=== PATIENT | male | born 1980 | race African-American/Black ===

== ENCOUNTER 2018-12-10 10:56 | Emergency (ER) | payer BC ==
[~2018-12-10] VITALS: Wt 78.7 kg
[2018-12-10] MEDS ORDERED: LIDOCAINE 1% (MDV) 10 ML INJ INJ STA (12:55)
--- NOTE | 2018-12-10 13:04 | ERD ---
ER Documentation Chief Complaint Chief Complaint left below eye lac after accidental elbow while playing basketball HPI 38-year-old male presents complaint of laceration to his upper left cheek which occurred today approximately 1 hour ago while playing basketball. Patient denies any pain. Patient denies any vision problems. Patient is up-to-date his vaccines. ROS All systems reviewed and are negative except as per history of present illness. Allergies Allergies: Coded Allergies: No Known Allergy (Unverified , 12/10/18) PMhx/Soc Medical and Surgical Hx: pt denies Medical Hx History of Surgery: Yes (torn acl 1999) Hx Alcohol Use: Yes Hx Substance Use: No Hx Tobacco Use: No Smoking Status: Never smoker Physical Exam Vitals Vital Signs Date Temp Pulse Resp B/P (MAP) Pulse Ox O2 O2 Flow FiO2 Time Delivery Rate 12/10/18 98.9 102 20 146/73 97 11:08 (97) Physical Exam Const: No acute distress Head: Atraumatic Eyes: Normal Conjunctiva. EOMs intact. ENT: Normal External Ears, Nose and Mouth. Neck: Full range of motion. No meningismus. Resp: Clear to auscultation bilaterally Cardio: Regular rate and rhythm, no murmurs Abd: Soft, non tender, non distended. Normal bowel sounds Skin: Approximately 1 cm laceration noted to the maxillary area of left cheek. No bony deformity noted. No foreign bodies noted. There is no bleeding. Back: No midline or flank tenderness Ext: No cyanosis, or edema Neur: Awake and alert Psych: Normal Mood and Affect Results 24 hrs Current Medications Medications Dose Sig/Óscar Start Time Status Last (Trade) Ordered Route PRN Stop Time Admin Dose Reason Admin Lidocaine 10 ml ONCE STAT 12/10/18 DC HCl INJ 12:55 (Lidocaine 12/10/18 12:56 1% (Mdv) 10 ml) Procedures/MDM MDM: Laceration Repair by me: Anesthesia: 1% lidocaine locally Location: Left maxillary Tendon/Joint/Nerves: No injury Foreign body: None detected after copious irrigation and exploration Technique: Skin glue Complexity: No subcutaneous sutures/mucosal repair/edge excision Post Closure Length: 1 cm Patient's bleeding was easily controlled in the department and there is no indication of anemia. No evidence of compartment syndrome, neurologic injury, vascular injury, open joint, tendon laceration, or foreign body. Patient is appropriate for outpatient follow up. 48 hour wound check. Scar minimization instructions given. Patient's EOMs are intact and there is no evidence of any kind of EOM entrapment or fracture therefore I do not feel that facial CT is necessary. Patient said he preferred Dermabond and this is appropriate given the presentation and location of the wound. At this time, patient is stable for discharge and outpatient management. I have instructed the patient to follow-up with his/her primary care physician in 1-2 days as well as return to ER 40 hours for wound check. I have discussed with the patient the possibility of needing to see a specialist for further workup and imaging studies if symptoms persist. I have instructed the patient to promptly return to the ER for any new or worsening symptoms including but not limited to increased pain, fever, nausea, vomiting, weakness or LOC. The patient and/or family expressed understanding of and agreement with this plan. All questions were answered. Home care instructions were provided. DISCLAIMER: Inadvertent spelling and grammatical errors are likely due to EHR/dictation software use and do not reflect on the overall quality of patient care. Also, please note that the electronic time recorded on this note does not necessarily reflect the actual time of the patient encounter. Departure Diagnosis: Primary Impression: Laceration Condition: Stable GILA KELLY Dec 10, 2018 13:04
[2018-12-10 14:09] VITALS: BP 132/71; PULSE 87; RESP 20
== END 2018-12-10 14:10 | disposition home or self-care (01) ==
LOC: FTE 10:56
DX: S01.412A Laceration without foreign body of left cheek and temporomandibular area, initial encounter (principal); W50.0XXA Accidental hit or strike by another person, initial encounter; Y92.310 Basketball court as the place of occurrence of the external cause